=== PATIENT | female | born 1980 | race African-American/Black ===

== ENCOUNTER 2021-07-18 00:59 | Emergency (ER) | payer MEDICAID, OTHER ==
--- NOTE | 2021-07-18 01:30 | NUR ---
Patient was called to be triaged but was not present in the waiting room.
--- NOTE | 2021-07-18 02:30 | NUR ---
Patient was called to be triaged but was not present in the waiting room. PATIENT WAS NOT TRIAGED OR SEEN BY [facility].
== END 2021-07-18 02:30 | disposition left against medical advice (07) ==
LOC: ER 01:14
DX: Z53.21 Procedure and treatment not carried out due to patient leaving prior to being seen by health care provider (principal)

== ENCOUNTER 2021-11-23 01:19 | Emergency (ER) | payer OTHER ==
[~2021-11-23] VITALS: Ht 165.1 cm; Wt 52.2 kg
--- NOTE | 2021-11-23 02:00 | NUR ---
Patient walked into ER c/o abdominal pain with N/V and diarrhea that started 3 days ago.
[2021-11-23] MEDS ORDERED: ADAL40PE SQ (03:06)
[2021-11-23] MEDS ORDERED: BUPR-96 PO (03:06)
[2021-11-23] MEDS ORDERED: ALBU6.7H9 IH (03:06)
--- NOTE | 2021-11-23 03:32 | NUR ---
Dr. Eaton on bedside for MSE.
[2021-11-23] MEDS ORDERED: HYDROMORPHONE 1 MG/1 ML DISP.SYRIN IV ONE ×2 (03:45→05:45)
[2021-11-23] MEDS ORDERED: IV NORMAL SALINE 1000 ML BAG IV ONE (03:45)
[2021-11-23] MEDS ORDERED: ONDANSETRON 4 MG/2 ML VIAL IV ONE (03:45)
--- NOTE | 2021-11-23 03:50 | NUR ---
Dr. Eaton on bedside for MSE.
[2021-11-23] MEDS ORDERED: ONDANSETRON 4 MG/2 ML VIAL ONE (03:57)
[2021-11-23] MEDS ORDERED: HYDROMORPHONE 1 MG/1 ML DISP.SYRIN ONE ×2 (03:57→05:39)
[2021-11-23 04:05] LABS: HEMATOCRIT 33.5 % (31.2-41.9); MEAN CORPUSCULAR HEMOGLOBIN 27.6 uug (24.7-32.8); MEAN CORPUSCULAR VOLUME 84.7 fL (75.5-95.3); PLATELET COUNT (AUTO) 626 K/uL (179-408)
[2021-11-23 04:10] LABS: CARBON DIOXIDE 25 mmol/L (21-32); CHLORIDE 106 mmol/L (98-107); CREATININE 0.7 mg/dL (0.6-1.3); GLUCOSE 93 mg/dL (74-106); POTASSIUM 3.5 mmol/L (3.5-5.1); UREA NITROGEN, BLOOD 7 mg/dL (7-18)
[2021-11-23 04:16] LABS: ALANINE AMINOTRANSFERASE 16 U/L (14-59); ALKALINE PHOSPHATASE 62 U/L (50-136); ASPARTATE AMINOTRANSFERASE 6 U/L (15-37); BILIRUBIN,DIRECT < 0.1 mg/dL (0.0-0.2); BILIRUBIN,TOTAL 0.3 mg/dL (0.2-1.0); LIPASE 93 U/L (73-393); TOTAL PROTEIN, SERUM 7.2 g/dL (6.4-8.2)
--- NOTE | 2021-11-23 05:14 | NUR ---
Patient signed waiver for abdominal x-ray.
[2021-11-23 05:17] LABS: *BILIRUBIN,URIN NEGATIVE (NEGATIVE); *BLOOD, URINE NEGATIVE (NEGATIVE); *CLARITY,URINE CLEAR (CLEAR); *COLOR,URINE YELLOW (YELLOW); *KETONES,URINE 1+ (NEGATIVE); LEUKOCYTE ESTERASE ,URINE NEGATIVE (NEGATIVE); NITRITE, URINE NEGATIVE (NEGATIVE); UGLUCOSE NEGATIVE (NEGATIVE)
[2021-11-23] MEDS ORDERED: ONDA4TAB11 PO (06:29)
--- NOTE | 2021-11-23 06:44 | NUR ---
Patient discharged to home in stable condition. Written and verbal after care instructions given. Patient verbalizes understanding of instructions. Stressed follow up or return to ER for worsening s/s. Patient ambulated fr the ER with steady gait. All belongings with patient.
[2021-11-23 06:46] VITALS: BP 119/52
== END 2021-11-23 06:44 | disposition home or self-care (01) ==
LOC: ER 01:22
DX: R10.31 Right lower quadrant pain (principal); R19.7 Diarrhea, unspecified; R11.2 Nausea with vomiting, unspecified; K50.90 Crohn's disease, unspecified, without complications; J45.909 Unspecified asthma, uncomplicated; F32.A Depression, unspecified; Z79.899 Other long term (current) drug therapy
CPT/HCPCS: 99285; 96374; 96361; 96375; 80076; 80048; 81003; 83690; 85025; 85651; 86140; 36415; 93005; 74021; 96376; 83605; J2405; J1170 ×2; J7040; A4663

== ENCOUNTER 2023-10-15 15:06 | Emergency (ER) | payer OTHER ==
[~2023-10-15] VITALS: Ht 165.1 cm; Wt 49.4 kg
[~2023-10-15 15:06] MED LIST: ADAL40PE SQ; ALBU6.7H9 IH; BUPR-96 PO; ONDA4TAB11 PO
[2023-10-15 15:39] LABS: *BILIRUBIN,URIN NEGATIVE (NEGATIVE); *CLARITY,URINE CLEAR (CLEAR); *COLOR,URINE YELLOW (YELLOW); *KETONES,URINE NEGATIVE (NEGATIVE); *PROTEIN,URINE NEGATIVE (NEGATIVE); *UROBILINOGEN,URINE 0.2 E.U./dl (NORMAL); LEUKOCYTE ESTERASE ,URINE NEGATIVE (NEGATIVE); NITRITE, URINE NEGATIVE (NEGATIVE); UGLUCOSE NEGATIVE (NEGATIVE)
[2023-10-15 15:40] LABS: *BLOOD, URINE TRACE (NEGATIVE)
[2023-10-15] MEDS ORDERED: ONDANSETRON 4 MG/2 ML VIAL ONE ×2 (15:46→15:47)
[2023-10-15] MEDS ORDERED: MORPHINE SULFATE 4 MG/1 ML DISP.SYRIN ONE (15:46)
[2023-10-15] MEDS ORDERED: methylPREDNISolone SOD SUCC 125 MG/2 ML VIAL ONE (15:46)
[2023-10-15] MEDS ORDERED: PANTOPRAZOLE SODIUM 40 MG VIAL ONE (15:46)
[2023-10-15] MEDS ORDERED: LIDOCAINE VISCUS 2% 15 ML UDC ONE (15:46)
[2023-10-15] MEDS ORDERED: MAG HYDROX/AL HYDROX/SIMETH 30 ML LIQUID UDC ONE (15:47)
[2023-10-15 15:50] LABS: CALCIUM 9.6 mg/dL (8.5-10.1); CREATININE 0.7 mg/dL (0.6-1.3); POTASSIUM 3.7 mmol/L (3.5-5.1)
[2023-10-15 15:52] LABS: BASOPHILS # (AUTO) 0.1 K/UL (0.0-0.2); BASOPHILS % (AUTO) 0.9 % (0.0-2.0); EOSINOPHILS % (AUTO) 0.7 % (0.0-7.0); HEMATOCRIT 41.6 % (31.2-41.9); HEMOGLOBIN 13.7 g/dL (10.9-14.3); LYMPHOCYTES # (AUTO) 3.1 K/uL (0.8-4.8); LYMPHOCYTES % (AUTO) 47.4 % (20.5-51.5); MEAN CORPUSCULAR HEMOGLOBIN 29.3 uug (24.7-32.8); MEAN CORPUSCULAR HGB CONC 33 g/dL (32.3-35.6); MEAN CORPUSCULAR VOLUME 89.1 fL (75.5-95.3); MONOCYTES # (AUTO) 0.5 K/uL (0.1-1.30); MONOCYTES % (AUTO) 7.4 % (0.0-11.0); NEUTROPHILS # (AUTO) 2.8 K/uL (1.8-8.9); NEUTROPHILS % (AUTO) 43.6 % (38.5-71.5); PLATELET COUNT (AUTO) 543 K/uL (179-408); RED BLOOD CELL COUNT(AUTO) 4.67 MIL/uL (3.63-4.92); RED CELL DISTRIBUTION WIDTH 17.7 % (12.3-17.7); WHITE BLOOD COUNT (AUTO) 6.5 K/uL (3.8-11.8)
[2023-10-15 15:54] LABS: DIFFERENTIAL COMMENT 1
[2023-10-15 15:56] LABS: ALBUMIN 3.7 g/dL (3.4-5.0); BILIRUBIN,DIRECT 0.2 mg/dL (0.0-0.2); BILIRUBIN,TOTAL 0.3 mg/dL (0.2-1.0); TOTAL PROTEIN, SERUM 8.3 g/dL (6.4-8.2)
[2023-10-15 15:57] LABS: BACTERIA,URINE FEW /HPF (NONE SEEN); RBC,URINE 0-3 /HPF (0-3); SQUAMOUS EPITHELIAL CELL,UR FEW /HPF (NONE SEEN); WBC,URINE 0-3 /HPF (0-3)
[2023-10-15] MEDS: IV NORMAL SALINE 1000 ML BAG IV ONE (16:03)
[2023-10-15] MEDS: ONDANSETRON 4 MG/2 ML VIAL IV ONE (16:04)
[2023-10-15] MEDS: PANTOPRAZOLE SODIUM 40 MG VIAL IV ONE (16:04)
[2023-10-15] MEDS: MORPHINE SULFATE 2 MG/1 ML DISP.SYRIN IV ONE (16:04)
[2023-10-15] MEDS: MAG HYDROX/AL HYDROX/SIMETH 30 ML LIQUID UDC PO ONE (16:04)
[2023-10-15] MEDS: LIDOCAINE VISCUS 2% 15 ML UDC MM ONE (16:04)
[2023-10-15] MEDS: methylPREDNISolone SOD SUCC 125 MG/2 ML VIAL IV ONE (16:04)
[2023-10-15] MEDS ORDERED: HYDROMORPHONE 1 MG/1 ML DISP.SYRIN ONE (16:57)
[2023-10-15] MEDS: HYDROMORPHONE 1 MG/1 ML DISP.SYRIN IV ONE (17:01)
[2023-10-15] MEDS ORDERED: ONDA4TAB5 PO (17:38)
[2023-10-15] MEDS ORDERED: HYDR-3974 PO (17:38)
[2023-10-15] MEDS ORDERED: CIPR500T5 PO (17:38)
[2023-10-15] MEDS ORDERED: PRED20TA PO (17:38)
[2023-10-15 18:52] VITALS: BP 132/71; TEMP 97.5; O2SAT 98
== END 2023-10-15 18:56 | disposition home or self-care (01) ==
LOC: ER 15:07
DX: K52.9 Noninfective gastroenteritis and colitis, unspecified (principal); K50.90 Crohn's disease, unspecified, without complications; R10.2 Pelvic and perineal pain; R10.84 Generalized abdominal pain; R11.2 Nausea with vomiting, unspecified; J45.909 Unspecified asthma, uncomplicated; F32.A Depression, unspecified; Z79.52 Long term (current) use of systemic steroids; Z79.899 Other long term (current) drug therapy
CPT/HCPCS: 36415; 83690; 85025; J1170; J2270; J2405; J2470; J2919; J7040